=== PATIENT | male | born 1970 | race Caucasian/White ===

== ENCOUNTER 2019-05-24 12:55 | Emergency (ER) | payer OTHER ==
[2019-05-24 13:14] VITALS: PULSE 67; RESP 16; TEMP 98
[2019-05-24] MEDS ORDERED: LIDOCAINE 1% INJ 10MG/ML (20 ML MDV) SQ ONE (13:39)
[2019-05-24] MEDS ORDERED: SULFAMETH-TMP DS STARTER PACK 2 TAB BTL PO STA (13:39)
--- NOTE | 2019-05-24 13:54 | ED ---
General Adult HPI - General Chief complaint: Skin/Abscess/Foreign Body Stated complaint: Insect bite Time Seen by Provider: 05/24/19 13:21 Source: patient, RN notes reviewed, old records reviewed Mode of arrival: ambulatory Limitations: no limitations - History of Present Illness Initial comments: is a 48-year-old male, he presents emergency department today for evaluation for a lump over his left elbow. Patient reports that he had this for the past 4 days presents with purulent drainage from the area. Patient states that his ever had a history of MRSA or any resistance skin infections. He is here visiting from [place]. Patient states that he thinks maybe a bit by a bug or some type of insect that caused the bite.Patient denies any recent fever, chills, shortness of breath, chest pain, back pain, abdominal pain, nausea vomiting, numbness or tingling, dysuria or hematuria, constipation or diarrhea, headaches or visual changes, or any other current symptoms - Related Data Previous Rx's Medication Instructions Recorded Sulfamethox-Tmp 800-160Mg [Bactrim 2 tab PO Q12HR #40 tab 05/24/19 DS 800-160 mg] Allergies Allergy/AdvReac Type Severity Reaction Status Date / Time codeine Allergy Rash/Hives Verified 05/24/19 13:14 Review of Systems ROS Statement: Those systems with pertinent positive or pertinent negative responses have been documented in the HPI. ROS Other: All systems not noted in ROS Statement are negative. Past Medical History Past Medical History: No Reported History History of Any Multi-Drug Resistant Organisms: None Reported Past Surgical History: Orthopedic Surgery Past Psychological History: No Psychological Hx Reported Smoking Status: Current every day smoker Past Alcohol Use History: None Reported Past Drug Use History: None Reported General Exam - General Exam Comments Initial Comments: 48-year-old male. Alert and oriented. No distress. Limitations: no limitations General appearance: alert, in no apparent distress Head exam: Present: atraumatic, normocephalic, normal inspection Eye exam: Present: normal appearance, PERRL, EOMI. Absent: scleral icterus, conjunctival injection, periorbital swelling ENT exam: Present: normal exam, mucous membranes moist Neck exam: Present: normal inspection. Absent: tenderness, meningismus, lymphadenopathy Respiratory exam: Present: normal lung sounds bilaterally. Absent: respiratory distress, wheezes, rales, rhonchi, stridor Cardiovascular Exam: Present: regular rate, normal rhythm, normal heart sounds. Absent: systolic murmur, diastolic murmur, rubs, gallop, clicks GI/Abdominal exam: Present: soft, normal bowel sounds. Absent: distended, tenderness, guarding, rebound, rigid Extremities exam: Present: normal inspection, full ROM, normal capillary refill. Absent: tenderness, pedal edema, joint swelling, calf tenderness Left Upper Arm exam: Present: normal inspection, full ROM Elbow exam: Present: normal inspection, full ROM, erythema (Patient has a central ulceration over the superior forearm, with purulent drainage and surrounding erythema noted for cellulitis.) Forearm Wrist exam: Present: normal inspection, full ROM Hand Wrist exam: Present: normal inspection, full ROM Neuro motor exam: Present: wrist extension intact, thumb opposition intact Back exam: Present: normal inspection, full ROM Neurological exam: Present: alert, oriented X3, CN II-XII intact Psychiatric exam: Present: normal affect, normal mood Skin exam: Present: warm, dry, intact, normal color. Absent: rash Course Vital Signs 05/24/19 05/24/19 13:11 15:03 Temperature 98.0 F 98.0 F Pulse Rate 67 67 Respiratory 16 16 Rate Blood Pressure 157/92 147/85 O2 Sat by Pulse 97 97 Oximetry Procedures - Incision & Drainage Site: upper extremity (Left superior forearm.) Size (cm): 2 Anesthetic Used: lidocaine 1% Amount (mLs): 2 I&D Cleaning Method: Iodine Sterile Field Used?: Yes Scalpel Used: #11 I&D Drainage Obtained: Pus, Blood Culture Obtained?: Yes Patient Tolerated Procedure: well, no complications Medical Decision Making - Medical Decision Making Patient is a 48-year-old male, presents for concern for infected insect bite over the left forearm near the elbow. He has full range of motion of the elbow, no skin concerns for infection within the joint. At this time Patient has a central ulceration that has purulent drainage from this. I obtain a culture, and opens it reopening approximately 3 mL Purulent fluid was removed. I discussed the Patient on antibiotics and have him follow up with primary care doctor. He is not from this area. I discussed that Patient should return to emergency department if the area of redness or swelling worsens. He states he does follow up with his primary care doctor when he gets home to [place] next week. Discussed completing the entire prescription of antibiotics as well. All questions were answered. - Radiology Data Radiology results: report reviewed Disposition Clinical Impression: Abscess of left arm Disposition: HOME SELF-CARE Condition: Good Instructions (If sedation given, give patient instructions): Abscess Incision and Drainage (ED) Additional Instructions: Patient should apply warm compresses over the area. Follow-up with primary care doctor. Return to the emergency department if any alarming signs or symptoms occur. Prescriptions: Sulfamethox-Tmp 800-160Mg [Bactrim DS 800-160 mg] 2 tab PO Q12HR #40 tab Is patient prescribed a controlled substance at d/c from ED?: No Referrals: None,Stated [Primary Care Provider] - 1-2 days Time of Disposition: 14:25
[2019-05-24 15:04] VITALS: BP 147/85
== END 2019-05-24 14:44 | disposition home or self-care (01) ==
LOC: EC 12:55
DX: L02.414 Cutaneous abscess of left upper limb (principal); S50.862A Insect bite (nonvenomous) of left forearm, initial encounter; F17.200 Nicotine dependence, unspecified, uncomplicated; Z88.5 Allergy status to narcotic agent; Z86.14 Personal history of Methicillin resistant Staphylococcus aureus infection
CPT/HCPCS: 87070; 87205; 87077; 87186; 99283; 10060; J2001

== ENCOUNTER 2020-05-17 09:50 | Emergency (ER) | payer OTHER ==
[2020-05-17 09:55] VITALS: BP 145/88; TEMP 97.2
[2020-05-17] MEDS ORDERED: LIDOCAINE 1% INJ 10MG/ML (20 ML MDV) SQ ONE (10:12)
[2020-05-17] MEDS ORDERED: SULFAMETHOX-TMP 800-160MG 1 EACH TAB PO STA (10:13)
--- NOTE | 2020-05-17 10:19 | ED ---
Skin/Abscess/FB HPI - General Chief complaint: Skin/Abscess/Foreign Body Stated complaint: Right arm swelling Time Seen by Provider: 05/17/20 10:02 Source: patient Mode of arrival: ambulatory Limitations: no limitations - History of Present Illness Initial comments: Patient is a 49-year-old male presenting to emergency Department with a chief complaint of elbow pain. Patient reports this started about 3 days ago on his right elbow which she believes is an insect bite or he might have bumped his elbow against something. Patient states he has developed swelling in the right elbow with some purulent drainage which she has been gradually attempting to push out. Denies any night sweats fevers or chills. He denies any history of MRSA. States he had a similar situation occurred last year on his opposite elbow. He denies taking medication to the symptoms. - Related Data Previous Rx's Medication Instructions Recorded Sulfamethox-Tmp 800-160Mg [Bactrim 2 tab PO Q12HR #40 tab 05/24/19 DS 800-160 mg] Sulfamethox-Tmp 800-160Mg [Bactrim 1 each PO Q12HR #20 tab 05/17/20 Ds] Allergies Allergy/AdvReac Type Severity Reaction Status Date / Time codeine Allergy Rash/Hives Verified 05/17/20 09:55 Review of Systems ROS Statement: Those systems with pertinent positive or pertinent negative responses have been documented in the HPI. ROS Other: All systems not noted in ROS Statement are negative. Past Medical History Past Medical History: No Reported History History of Any Multi-Drug Resistant Organisms: None Reported Past Surgical History: Orthopedic Surgery Past Psychological History: No Psychological Hx Reported Smoking Status: Current every day smoker Past Alcohol Use History: None Reported Past Drug Use History: None Reported General Exam Limitations: no limitations General appearance: alert, in no apparent distress Head exam: Present: atraumatic, normocephalic, normal inspection Eye exam: Present: normal appearance, PERRL, EOMI Pupils: Present: normal accommodation ENT exam: Present: normal exam, normal oropharynx, mucous membranes moist, TM's normal bilaterally, normal external ear exam Neck exam: Present: normal inspection, full ROM. Absent: tenderness Respiratory exam: Present: normal lung sounds bilaterally. Absent: respiratory distress, wheezes, rales Cardiovascular Exam: Present: regular rate, normal rhythm, normal heart sounds GI/Abdominal exam: Present: soft. Absent: distended, tenderness, guarding, rebound Extremities exam: Present: full ROM (4 range of motion of the right elbow), tenderness (Mild tenderness at the abscess site. No tenderness of the elbow), normal capillary refill, other (+2 ulnar and radial pulses bilateral.). Absent: normal inspection (Abscess measuring about 4 cm and induration with a purulent center. Swelling continues distally to the lesion. The abscess is located on the right proximal forearm), pedal edema, joint swelling, calf tenderness Back exam: Present: normal inspection, full ROM. Absent: tenderness, CVA tenderness (R), CVA tenderness (L) Neurological exam: Present: alert, oriented X3, normal gait Psychiatric exam: Present: normal affect, normal mood Skin exam: Present: warm, dry, intact, normal color Course Vital Signs 05/17/20 09:51 Temperature 97.2 F L Pulse Rate 100 Respiratory 18 Rate Blood Pressure 145/88 O2 Sat by Pulse 100 Oximetry - Reevaluation(s) Reevaluation #1: 05/17/20 10:17 Medical records reviewed Procedures - Incision & Drainage Consent Obtained: verbal consent Indication: Abscess Site: upper extremity (Right proximal forearm) Size (cm): 4 Anesthetic Used: lidocaine 1% Amount (mLs): 5 I&D Cleaning Method: Alcohol Wipe Sterile Field Used?: No Scalpel Used: #11 Needle Aspiration Performed?: No Irrigation Performed?: Yes I&D Drainage Obtained: Pus, Blood Culture Obtained?: No Complications: bleeding Patient Tolerated Procedure: well, no complications Medical Decision Making - Medical Decision Making Patient is a 49-year-old male presenting to emergency department with chief complaint of an abscess. Physical examination, patient appears to have an abscess on the right proximal forearm measuring approximately 4 cm in diameter with a pustular center with active loza/white discharge. No concern for septic joint at this time. She has full range of motion of the right elbow. He had a similar case and the other elbow almost one year ago which revealed positive MRSA and we'll culture. Patient will be started on Bactrim in the ED. Incision and drainage performed and I was able to remove pus and blood. Patient will be discharged at 10 day course of Bactrim. Strict return parameters were yoan richards discussed with patient is understanding and agreeable. Case discussed with physician. Disposition Clinical Impression: Abscess of skin Disposition: HOME SELF-CARE Condition: Stable Instructions (If sedation given, give patient instructions): Abscess (ED) Additional Instructions: Apply warm compresses at the lesion site. The pressure medication as directed. Return to emergency department if symptoms worsen. Prescriptions: Sulfamethox-Tmp 800-160Mg [Bactrim Ds] 1 each PO Q12HR #20 tab Is patient prescribed a controlled substance at d/c from ED?: No Referrals: None,Stated [Primary Care Provider] - 1-2 days Time of Disposition: 10:19
[2020-05-17 10:53] VITALS: PULSE 61; RESP 16
== END 2020-05-17 10:36 | disposition home or self-care (01) ==
LOC: EC 09:50
DX: L02.413 Cutaneous abscess of right upper limb (principal); F17.200 Nicotine dependence, unspecified, uncomplicated; Z88.5 Allergy status to narcotic agent
CPT/HCPCS: 99283; 10060; J2001